=== PATIENT | male | born 1965 | race Two or more races ===

== ENCOUNTER 2024-08-09 05:37 | Emergency (ER) | payer MEDICARE, MEDICAID ==
[~2024-08-09] VITALS: Ht 177.8 cm; Wt 77.0 kg
[2024-08-09 06:09] VITALS: TEMP 37.00296
[2024-08-09 09:18] VITALS: O2SAT 97
[2024-08-09] MEDS: MIDAZOLAM HCL 2 MG/2 ML VIAL IV ONE (09:18)
[2024-08-09] MEDS: KETAMINE HCL 50 MG/ML 10ML IV ONE (09:19)
[2024-08-09] MEDS ORDERED: HYDR-4001 MT (10:09)
[2024-08-09 10:45] VITALS: BP 134/87; PULSE 76; RESP 19; O2SAT 100
== END 2024-08-09 11:30 | disposition home or self-care (01) ==
LOC: ER 05:37
DX: S02.2XXA Fracture of nasal bones, initial encounter for closed fracture (principal); S52.592A Other fractures of lower end of left radius, initial encounter for closed fracture; Z88.0 Allergy status to penicillin; W01.0XXA Fall on same level from slipping, tripping and stumbling without subsequent striking against object, initial encounter; Y93.89 Activity, other specified; Y92.89 Other specified places as the place of occurrence of the external cause; Y99.8 Other external cause status
CPT/HCPCS: 25605; 72170; 73090; 73100; 73120; 73560; 73590; 70450; 70486; 72125; 71250; 99152; 99285; J3490; J2250; A4565